=== PATIENT | female | born 1970 | race African-American/Black ===

== ENCOUNTER → 2017-02-04 | Outpatient (CLI) | payer OTHER ==
[~2017-02-04] MED LIST: ABILIFY20 MG PO; BUMETANIDE2 M1 PO; GABAPENTIN800 MG PO; HYDROXYZINE HCL25 M1 PO; LISINOPRIL20 MG PO; NAPROXEN PO
--- NOTE | ~2017-02-04 | CR97 ---
[facility] A Service of [facility] RADIOLOGY TEXT RESULTS PATIENT: CORA LONG LOCATION: [facility] : 66 UNIT #: [id number] AGE: [address]: Curtis Chiang III, MD SEX: F ORDER DR: [id number] [facility] [address] [place], [place] [address] [id number] O MR#: [id number] Acc #: [id number] NAME: CORA LONG : 1970 SEX: F STUDY DATE/TIME: 02/04/2017 10:41 UNIT: [facility] ROOM: STUDY DESCRIPTION: CR Esophagram Attending Physician: Curtis Chiang III, M.D. Referring Physician: Curtis Chiang III, M.D. Ordering Physician: Curtis Chiang III, M.D. Primary Care Physician: No Primary Care Physician MEDICAL IMAGING REPORT This report is preliminary unless electronic signature is present EXAM Esophagram 02/04 INDICATIONS History of gastric band placement last year. Patient report dysphagia with feeling like food getting stuck in throat for 2 months. There is nausea and vomiting. FINDINGS Fluoro time 1 minute. 34 total images were obtained. COMPARISON STUDIES Comparison made with [facility] [place] from 04/11/2016. Gastric band is in place with phi angle of about 60 degrees. This is not significantly changed from the postoperative examination. Esophageal motility is normal. There is free flow of contrast through the gastric band. Very small pouch is noted above the band. IMPRESSION The gastric band appears unchanged in position from the postoperative study. Esophageal motility is normal and there is free flow of barium through the band at this time. Dictated by... Kevin Blood Jr., M.D. THIS IS AN ELECTRONICALLY VERIFIED REPORT Kevin Blood Jr., M.D. at 02/04/2017 5:01 PM YUKO/mary ann TD: 02/04/2017 16:24 JOB #: [id number] [facility] A Service of [facility] RADIOLOGY TEXT RESULTS PATIENT: CORA LONG LOCATION: [facility] #: [id number] : [birth year] UNIT #: [id number] AGE: [address]: Curtis Chiang III, MD SEX: F ORDER DR: MEDICAL IMAGING REPORT Page 1 of 1 COPY
== END | disposition home or self-care (01) ==
LOC: CRAD 09:55
DX: R13.10 Dysphagia, unspecified (principal); Z98.84 Bariatric surgery status
CPT/HCPCS: 74220